=== PATIENT | male | born 1955 | race Caucasian/White ===

== ENCOUNTER → 2019-06-06 | Outpatient (CLI) | payer MEDICARE, BC, OTHER | LOC: COL.RAD 10:55 | DX: Z01.812 Encounter for preprocedural laboratory examination (principal); I71.3 Abdominal aortic aneurysm, ruptured; I50.20 Unspecified systolic (congestive) heart failure; N17.9 Acute kidney failure, unspecified; I70.201 Unspecified atherosclerosis of native arteries of extremities, right leg; I70.1 Atherosclerosis of renal artery; E27.8 Other specified disorders of adrenal gland | CPT/HCPCS: Q9967 ==

== ENCOUNTER 2019-07-01 13:27 | Inpatient (IN) | payer MEDICARE, BC ==
[2019-07-01] VITALS (12 sets, daily range): BP systolic 118–138; BP diastolic 46–76; PULSE 82–90; TEMP 97.7–98.3
[~2019-07-01] VITALS: Ht 182.9 cm; Wt 91.2 kg
[2019-07-01 14:26] LABS: BASO # 0.1 (0.0-0.2); BASO % 0.5 % (0.0-2.0); EOS # 0.2 (0.0-0.7); EOS % 1.6 % (0-4.0); GRAN # 7.5 (1.4-6.5); LYMPH # 1.2 (1.2-3.4); LYMPH % 12.3 % (20.0-51.0); MEAN CELL VOLUME 78 fl (80.0-100.0); MEAN CORPUSCULAR HGB CONC 25 g/dl (33.0-37.0); MEAN PLATELET VOLUME 11.6 fl (7.4-10.4); MONO % 10.3 % (1.7-9.3); PLATELET COUNT 247 K/mm3 (130-400); RED BLOOD COUNT 2.92 M/mm3 (4.20-5.60); REDCELL DISTRIBUTION WIDTH-CV 19.1 % (11.5-14.5)
[2019-07-01 14:30] LABS: HEMATOCRIT 22.9 % (42.0-52.0); MEAN CORPUSCULAR HEMOGLOBIN 20 pg (27.0-31.0)
[2019-07-01 14:32] LABS: ALBUMIN 3.9 gm/dL (3.5-5.0); BILIRUBIN,TOTAL 0.2 mg/dL (0.0-1.0); CALCIUM 9.3 mg/dL (8.4-10.2); CREATININE, serum 0.6 (0.66-1.25); HEMOGLOBIN 5.8 g/dl (13.5-18.0); POTASSIUM 4.3 mmol/L (3.4-5.0)
[2019-07-01] MEDS ORDERED: TYLENOL 325MG325 MG PO (14:51)
[2019-07-01] MEDS ORDERED: ASPIRIN 81M81 MG/TA2 PO (14:51)
[2019-07-01] MEDS ORDERED: LIPITOR 40MG TA40 MG PO (14:51)
[2019-07-01] MEDS ORDERED: COREG12.5 MG PO (14:51)
[2019-07-01] MEDS ORDERED: VITAMIN D 50,1.25 MG PO (14:52)
[2019-07-01] MEDS ORDERED: PLAVIX 75MG TAB75 MG PO (14:52)
[2019-07-01] MEDS ORDERED: NORCO 325 MG-51 TAB PO (14:52)
[2019-07-01] MEDS ORDERED: COZAAR 50MG50 MG/TAB PO (14:52)
[2019-07-01] MEDS ORDERED: ALDACTONE 25MG25 M1 PO (14:53)
[2019-07-01] MEDS ORDERED: NITROSTAT0.4 MG/TAB SL (14:53)
[2019-07-01 15:27] LABS: TROPONIN-I < 0.012 ng/mL (0.000-0.035)
[2019-07-01 16:12] LABS: COLLECTION METHOD CLEAN CATCH
[2019-07-01 16:32] LABS: SQUAMOUS EPITHELIAL 0-2 /hpf; URINE BACTERIA None Seen /hpf; URINE RBC 0-2 /hpf
[2019-07-01 17:06] LABS: PH 5 (5-8); URINE APPEARANCE Clear; URINE BILIRUBIN Negative (NEGATIVE); URINE BLOOD Negative (NEGATIVE); URINE COLOR Yellow; URINE GLUCOSE Negative (NEGATIVE); URINE KETONE Negative (NEGATIVE); URINE LEUKOCYTE ESTERASE Negative (NEGATIVE); URINE NITRATE Negative (NEGATIVE); URINE PROTEIN(semi-quant) Negative (NEGATIVE); URINE UROBILINOGEN Negative (NEGATIVE)
--- NOTE | 2019-07-01 17:37 | NUR ---
Patient up from ER. Patient oriented to room. Blood infusing per orders, initiated in ER. VSS. Denies further needs at this time.
--- NOTE | 2019-07-01 19:19 | NUR ---
Patient placed on 3L of oxygen via NC to maintain O2 saturations above 92. Blood infusing per orders, VSS. Patient initiated on bowel prep per orders. Reported off to hourly shift manager .
[2019-07-02 00:05] VITALS: BP 126/48; PULSE 88; TEMP 98.1
[2019-07-02 01:39] LABS: MEAN CELL VOLUME 79 fl (80.0-100.0); MEAN CORPUSCULAR HGB CONC 28 g/dl (33.0-37.0); MEAN PLATELET VOLUME 11.4 fl (7.4-10.4); PLATELET COUNT 219 K/mm3 (130-400); RED BLOOD COUNT 3.33 M/mm3 (4.20-5.60); REDCELL DISTRIBUTION WIDTH-CV 18.9 % (11.5-14.5)
[2019-07-02 01:42] LABS: HEMATOCRIT 26.3 % (42.0-52.0); HEMOGLOBIN 7.4 g/dl (13.5-18.0); MEAN CORPUSCULAR HEMOGLOBIN 22 pg (27.0-31.0)
--- NOTE | 2019-07-02 03:16 | NUR ---
patient doing well tonight. tolerated both units of PRBC. VSS. O2 sats stable above 92% on 3 L o2 via NC. denies pain or need for pain medication. patient finished bowel prep without issue. stools are still dark. tele shows normal sinus rhythm. has been NPO since midnight. no further needs at this time. will continue to monitor.
[2019-07-02 04:16] VITALS: BP 135/64; PULSE 88; TEMP 98.2
[2019-07-02 07:36] LABS: BASO # 0.1 (0.0-0.2); BASO % 0.7 % (0.0-2.0); EOS # 0.2 (0.0-0.7); EOS % 2.2 % (0-4.0); GRAN # 7.7 (1.4-6.5); GRAN % 75.1 % (42.2-75.2); LYMPH % 10.1 % (20.0-51.0); MEAN CELL VOLUME 81 fl (80.0-100.0); MEAN CORPUSCULAR HGB CONC 27 g/dl (33.0-37.0); MEAN PLATELET VOLUME 11.6 fl (7.4-10.4); MONO # 1.1 (0.1-0.6); PLATELET COUNT 216 K/mm3 (130-400); RED BLOOD COUNT 3.34 M/mm3 (4.20-5.60); REDCELL DISTRIBUTION WIDTH-CV 18.8 % (11.5-14.5)
[2019-07-02 07:39] LABS: HEMATOCRIT 27.2 % (42.0-52.0); HEMOGLOBIN 7.3 g/dl (13.5-18.0); MEAN CORPUSCULAR HEMOGLOBIN 22 pg (27.0-31.0)
[2019-07-02 07:55] LABS: CREATININE, serum 0.55 (0.66-1.25); POTASSIUM 4.5 mmol/L (3.4-5.0)
[2019-07-02 08:19] VITALS: BP 132/66; PULSE 90; TEMP 98.3
--- NOTE | 2019-07-02 11:00 | NUR ---
Patient is doing well after his procedure. Dr Garrison spoke with family and patient about discharge plan and the findings of them. Patient got upset with family and doctor. He stated he wants to leave this afternoon. No other changes at this time. Call light within reach.
--- NOTE | 2019-07-02 12:12 | NUR ---
Initial visit; Patient thanked Manager Banking for looking in on him and offering God's blessings.
--- NOTE | 2019-07-02 13:39 | NUR ---
Cma Or Lpn met with the patient to discuss discharge planning. Patient lives in a camper in the driveway of his cousins' home, [place]. Patient lives with his brother, Brendon ( ). Patient receives primary care from [facility] in [place] from Dr. Castro. Patient also obtains medications at the [facility] and has no issue affording them. Patient states he has had some difficulty getting around, but is independent with ADLS. Patient does not have any DME. Patient does not have Advance Directives and is not interested in designating a DPOA-HC. Patient plans to return home upon discharge. SW to continue to follow as needed.
--- NOTE | 2019-07-02 15:00 | NUR ---
Patient continues to have desaturation. Spoke with Dr Garrison about this. Patients oxygen saturation dropped to 70% once this afternoon. Encouraged him to do deep breathing excercises. No other changes at this time. Patient is being more agreeable about staying this afternoon and staying the night. No other changes a this time. Call light within reach.
[2019-07-02 15:49] VITALS: BP 117/53; PULSE 92; TEMP 98.7
[2019-07-02 15:56] LABS: HEMATOCRIT 28.2 % (42.0-52.0); HEMOGLOBIN 7.3 g/dl (13.5-18.0)
--- NOTE | 2019-07-02 18:00 | NUR ---
Patient has been doing well this afternoon. No other changes at this time. No complaints of pain. Eating and drinking without problems. Patient is hoping to discharge tomorrow. Explained will need to get patient set up with oxygen to go home. Patient verbalized understanding. No other changes at this time. Call light within reach.
[2019-07-02 18:25] LABS: HEMATOCRIT 27.1 % (42.0-52.0); HEMOGLOBIN 7.4 g/dl (13.5-18.0)
[2019-07-02 19:34] VITALS: BP 115/52; PULSE 93; TEMP 99.2
--- NOTE | 2019-07-02 20:27 | NUR ---
Lying in bed on right side. Denies pain or shortness of breath. Denies feeling short of breath when up doing activity. Explains that he had a CT done earlier and questions about the results. Explained the the provider will need to review the report and the provider will go over the report with him most likely in the morning. Denies N/V. Denies further concerns or needs at this time.
[2019-07-03] VITALS (10 sets, daily range): BP systolic 127–148; BP diastolic 59–81; PULSE 86–103; TEMP 97.7–99.5
--- NOTE | 2019-07-03 00:18 | NUR ---
Lying in bed with eyes open. Denies any pain, N/V. Patient explains that he has been up several times to the bathroom to urinate. Denies any complaints or needs at this time.
--- NOTE | 2019-07-03 02:05 | NUR ---
Patient up to restroom. Voids without difficulty. Returns to bed. Denies further needs or concerns at this time.
--- NOTE | 2019-07-03 03:18 | NUR ---
Patient up to bathroom to urinate. Noted on telemetry that heart rate went up to 120's. Patient denies pain or weakness. Returned to bed. Heart rate decreases to 90's. Patient denies further needs at this time.
--- NOTE | 2019-07-03 04:35 | NUR ---
Lying in bed with eyes open. Denies pain or nausea. Asks for a snack, crackers provided along with fresh water. Denies further needs.
--- NOTE | 2019-07-03 05:05 | NUR ---
Lying in bed with eyes open. Denies any pain. Explains that he can't wait for the provider to come in to talk with him about his tests so that he can get some answers about what is going on or what he is to expect. Concerned about any new medications that will be prescribed or medications that he is on that will be stopped. Explained that prior to him leaving they will provide him with a list of the medications he is to continue, those he will stop, and any new that he will start. Patient verbalizes understanding and denies further needs at this time.
[2019-07-03 06:41] LABS: BASO % 0.3 % (0.0-2.0); EOS # 0.2 (0.0-0.7); EOS % 1.8 % (0-4.0); GRAN # 8.1 (1.4-6.5); GRAN % 78.4 % (42.2-75.2); LYMPH % 9.3 % (20.0-51.0); MEAN CELL VOLUME 81 fl (80.0-100.0); MEAN CORPUSCULAR HGB CONC 27 g/dl (33.0-37.0); MEAN PLATELET VOLUME 12.9 fl (7.4-10.4); MONO % 9.7 % (1.7-9.3); PLATELET COUNT 227 K/mm3 (130-400); RED BLOOD COUNT 3.14 M/mm3 (4.20-5.60); REDCELL DISTRIBUTION WIDTH-CV 19.6 % (11.5-14.5)
[2019-07-03 06:52] LABS: CALCIUM 8.8 mg/dL (8.4-10.2); CREATININE, serum 0.5 (0.66-1.25); POTASSIUM 4.2 mmol/L (3.4-5.0)
[2019-07-03 06:58] LABS: HEMATOCRIT 25.4 % (42.0-52.0); HEMOGLOBIN 6.8 g/dl (13.5-18.0); MEAN CORPUSCULAR HEMOGLOBIN 22 pg (27.0-31.0)
--- NOTE | 2019-07-03 07:10 | NUR ---
Notified Olga COLLAZO of critical hemoglobin. Orders to transfuse 1 unit of PRBC entered.
--- NOTE | 2019-07-03 08:00 | NUR ---
Patient in bed resting. Alert and oriented x 3. Shift assessment complete. Educated patient on blood transfusion. Denies pain at this time. Fluids infusing per orders to right AC. Denies further needs at this time.
--- NOTE | 2019-07-03 10:15 | NUR ---
Initiated blood transfusion, VSS. This nurse remained with patient for initial 15 minutes of transfusion.
[2019-07-03 14:12] LABS: HEMATOCRIT 27.6 % (42.0-52.0); HEMOGLOBIN 7.7 g/dl (13.5-18.0)
[2019-07-03] MEDS ORDERED: AMOXICILLIN 8751 TAB PO (14:25)
[2019-07-03] MEDS ORDERED: COREG 3.123.125 MG/T PO (14:27)
[2019-07-03] MEDS ORDERED: PROTONIX 40MG T40 MG PO (14:28)
--- NOTE | 2019-07-03 14:44 | NUR ---
PERFORMED HOME O2 QUALIFICATIONS: SPO2 88% ON RA WHILE AT REST. PT QUALIFIES FOR HOME O2. NOTIFIED RN.
--- NOTE | 2019-07-03 17:16 | NUR ---
Runstitching Machine Operator was notified that patient will need oxygen upon discharge. HOLLY met with patient and presented DME choice form. Patient chose [facility] and signed the choice form. HOLLY placed form in patient chart. HOLLY faxed referral including order to [facility] and was informed pneumonia diagnosis is acute which means Medicare will not cover the cost and out of pocket massey is roughly $200 per month. HOLLY consulted MARY CARMEN Kumari who then included additional diagnosis of emphysema. HOLLY faxed updated order and discharge summary. HOLLY was then informed by Sarabjit Kapoor that due to time of day and question of diagnosis, patient would be required to sign ABN form which states patient would be required to pay if Medicare does not cover cost. This also requires form of payment to be taken although charges are not made until benefits are denied. SW relayed this information to patient and patient states he will not sign the form because he cannot afford out of pocket cost after HOLLY explained cost would be roughly $200 out of pocket. Patient states he has an appointment at the [facility], with the Red Team tomorrow and that they could assist him in obtaining oxygen. HOLLY informed MARY CARMEN Kumari that patient will not sign ABN form and [facility]. Patient to discharge this evening without oxygen. SW to follow up with [facility], Red Team tomorrow to ensure oxygen need is met.
--- NOTE | 2019-07-03 17:35 | NUR ---
Outreach Analyst spoke with Hospitalist who advised patient is agreeable to stay another night so oxygen can be set up prior to discharge. SW will continue to follow.
--- NOTE | 2019-07-03 18:36 | NUR ---
Patient has done well throughout the day. Denies needs at this time. Will report off to retail shift leader.
[2019-07-04 00:52] VITALS: BP 137/67; PULSE 92; TEMP 98.8
[2019-07-04 04:00] VITALS: BP 129/58; PULSE 95; TEMP 98.1
--- NOTE | 2019-07-04 04:53 | NUR ---
Patient has rested well throughout the night. Denies any pain. Independent with toileting. Denies any further needs. Will continue to monitor.
[2019-07-04 06:09] LABS: BASO # 0.1 (0.0-0.2); BASO % 0.5 % (0.0-2.0); EOS # 0.3 (0.0-0.7); EOS % 2.5 % (0-4.0); GRAN # 7.7 (1.4-6.5); GRAN % 76.4 % (42.2-75.2); LYMPH # 0.9 (1.2-3.4); LYMPH % 8.8 % (20.0-51.0); MEAN CELL VOLUME 80 fl (80.0-100.0); MEAN CORPUSCULAR HGB CONC 28 g/dl (33.0-37.0); MEAN PLATELET VOLUME 12.3 fl (7.4-10.4); MONO # 1.2 (0.1-0.6); MONO % 11.4 % (1.7-9.3); PLATELET COUNT 221 K/mm3 (130-400); RED BLOOD COUNT 3.59 M/mm3 (4.20-5.60); REDCELL DISTRIBUTION WIDTH-CV 19.4 % (11.5-14.5)
[2019-07-04 06:10] LABS: HEMATOCRIT 28.8 % (42.0-52.0); MEAN CORPUSCULAR HEMOGLOBIN 22 pg (27.0-31.0)
[2019-07-04 07:13] VITALS: BP 138/70; PULSE 87; TEMP 98.2
--- NOTE | 2019-07-04 10:54 | NUR ---
Geophysics Teacher contacted Sarabjit Kapoor who advised patient would still be required to sign ABN as two [employer] employees who review benefits are out of the office. SW faxed referral to [facility] and patient was in agreeance. [facility] delivered oxygen to patient and did not require ABN to be signed. [facility]. SW contacted [employer] to advise patient chose another company. No additional concerns at this time. Patient to discharge today.
--- NOTE | 2019-07-04 11:30 | NUR ---
Patient is discharging home. His oxygen tank has been delivered. He knows to call when he is almost home so that they can deliver his concentrator. Explained when his follow up appointments are. He verbalized understanding. All belongings packed up and given to patient. His wallet has been returned to him. He has 3 scripts he needs to get filled and he is aware of them. He is being walked out via wheel chair by JASON Chandler.
== END 2019-07-04 11:30 | disposition home or self-care (01) | DRG 374 ==
LOC: COL.ER 13:27 → SURG 15:16
PROVIDERS: Emergency Medicine; Hospitalist; Internal Medicine Gastroenterology; Physician Assistant; ADMIT Student in an Organized Health Care Education/Training Program
PROC: 0DBL8ZX Excision of Transverse Colon, Via Natural or Artificial Opening Endoscopic, Diagnostic (ICD-10-PCS; 2019-07-02)
PROC: 0DBN8ZX Excision of Sigmoid Colon, Via Natural or Artificial Opening Endoscopic, Diagnostic (ICD-10-PCS; 2019-07-02)
PROC: 0DBP8ZX Excision of Rectum, Via Natural or Artificial Opening Endoscopic, Diagnostic (ICD-10-PCS; 2019-07-02)
PROC: 0DBM8ZX Excision of Descending Colon, Via Natural or Artificial Opening Endoscopic, Diagnostic (ICD-10-PCS; 2019-07-02)
PROC: 0DB68ZX Excision of Stomach, Via Natural or Artificial Opening Endoscopic, Diagnostic (ICD-10-PCS; principal; 2019-07-02 09:00)
PROC: 0DBK8ZX Excision of Ascending Colon, Via Natural or Artificial Opening Endoscopic, Diagnostic (ICD-10-PCS; 2019-07-02 09:00)
DX: C16.9 Malignant neoplasm of stomach, unspecified (principal); J69.0 Pneumonitis due to inhalation of food and vomit; J96.01 Acute respiratory failure with hypoxia; I25.10 Atherosclerotic heart disease of native coronary artery without angina pectoris; I73.9 Peripheral vascular disease, unspecified; I71.4 Abdominal aortic aneurysm, without rupture; I10 Essential (primary) hypertension; F17.210 Nicotine dependence, cigarettes, uncomplicated; K63.5 Polyp of colon; D50.9 Iron deficiency anemia, unspecified; Z95.9 Presence of cardiac and vascular implant and graft, unspecified; Z79.82 Long term (current) use of aspirin
CPT/HCPCS: 99222-AI; 99231-AI; 99232-AI; 99239; C9113; J2405; J2704; J2765; J7030; P9016; Q9967

== ENCOUNTER 2019-08-08 23:54 | Emergency (ER) | payer MEDICARE, BC ==
[~2019-08-08] VITALS: Ht 182.9 cm; Wt 84.1 kg
[~2019-08-08 23:54] MED LIST: ALDACTONE 25MG25 M1 PO; AMOXICILLIN 8751 TAB PO; ASPIRIN 81M81 MG/TA2 PO; COREG 3.123.125 MG/T PO; COREG12.5 MG PO; COZAAR 50MG50 MG/TAB PO; LIPITOR 40MG TA40 MG PO; NITROSTAT0.4 MG/TAB SL; NORCO 325 MG-51 TAB PO; PLAVIX 75MG TAB75 MG PO; PROTONIX 40MG T40 MG PO; TYLENOL 325MG325 MG PO; VITAMIN D 50,1.25 MG PO
[2019-08-09] VITALS (7 sets, daily range): BP systolic 113–143; BP diastolic 58–73; PULSE 103–108; TEMP 98–98.3
[2019-08-09] MEDS ORDERED: FERROUSAL325 MG PO (00:22)
[2019-08-09] MEDS ORDERED: ELIQUIS 5MG PO (00:23)
[2019-08-09 00:46] LABS: MEAN CELL VOLUME 84 fl (80.0-100.0); MEAN CORPUSCULAR HGB CONC 27 g/dl (33.0-37.0); MEAN PLATELET VOLUME 12.1 fl (7.4-10.4); PLATELET COUNT 294 K/mm3 (130-400); RED BLOOD COUNT 2.77 M/mm3 (4.20-5.60); REDCELL DISTRIBUTION WIDTH-CV 26.8 % (11.5-14.5)
[2019-08-09 00:48] LABS: HEMATOCRIT 23.3 % (42.0-52.0); HEMOGLOBIN 6.3 g/dl (13.5-18.0); INR 2.3 (0.8-3.0); MEAN CORPUSCULAR HEMOGLOBIN 23 pg (27.0-31.0)
[2019-08-09 00:51] LABS: ALBUMIN 3.6 gm/dL (3.5-5.0); BILIRUBIN,TOTAL 0.3 mg/dL (0.0-1.0); CALCIUM 9.1 mg/dL (8.4-10.2); CREATININE, serum 0.86 (0.66-1.25); POTASSIUM 4.4 mmol/L (3.4-5.0); TOTAL PROTEIN 6.6 gm/dL (6.4-8.2)
[2019-08-09 01:45] LABS: ANISOCYTOSIS 2+; BAND 5 % (0-10); BASOPHIL 2 % (0-2); EOSINOPHIL 2 % (0-4); HYPOCHROMIA 3+; LYMPHOCYTE 13 % (20.0-51.0); METAMYELOCYTE 2 % (0-0); NEUTROPHILS 71 % (42.0-75.2); PLATELET ESTIMATE NORMAL (NORMAL)
[2019-08-09 01:46] LABS: OVALOCYTES 1+
[2019-08-09 01:50] LABS: POLYCHROMASIA 1+
== END 2019-08-09 04:00 | disposition short-term general hospital (02) ==
LOC: COL.ER 23:54
PROVIDERS: Emergency Medicine
DX: K92.2 Gastrointestinal hemorrhage, unspecified (principal); D64.9 Anemia, unspecified; E78.5 Hyperlipidemia, unspecified; I25.10 Atherosclerotic heart disease of native coronary artery without angina pectoris; I10 Essential (primary) hypertension; I82.409 Acute embolism and thrombosis of unspecified deep veins of unspecified lower extremity; Z95.5 Presence of coronary angioplasty implant and graft; Z79.01 Long term (current) use of anticoagulants
CPT/HCPCS: C9113; J3010; J7030; P9016

== ENCOUNTER 2019-09-15 18:52 | Emergency (ER) | payer MEDICARE, BC ==
[~2019-09-15] VITALS: Ht 182.9 cm; Wt 83.6 kg
[~2019-09-15 18:52] MED LIST changes: +ELIQUIS 5MG PO; +FERROUSAL325 MG PO
[2019-09-15 18:55] VITALS: TEMP 97.2
[2019-09-15 19:22] LABS: BASO # 0.1 (0.0-0.2); BASO % 0.4 % (0.0-2.0); EOS % 0.2 % (0-4.0); GRAN # 14.3 (1.4-6.5); LYMPH % 5.6 % (20.0-51.0); MEAN CELL VOLUME 88 fl (80.0-100.0); MEAN CORPUSCULAR HGB CONC 28 g/dl (33.0-37.0); MEAN PLATELET VOLUME 12.6 fl (7.4-10.4); MONO # 1.5 (0.1-0.6); MONO % 8.7 % (1.7-9.3); PLATELET COUNT 393 K/mm3 (130-400); RED BLOOD COUNT 3.04 M/mm3 (4.20-5.60); REDCELL DISTRIBUTION WIDTH-CV 18.2 % (11.5-14.5)
[2019-09-15 19:27] LABS: HEMATOCRIT 26.8 % (42.0-52.0); HEMOGLOBIN 7.5 g/dl (13.5-18.0); MEAN CORPUSCULAR HEMOGLOBIN 25 pg (27.0-31.0)
[2019-09-15 19:43] LABS: ARTERIAL BLD GAS O2 SATURATION 93.1 % (92-100); ARTERIAL BLD GAS TCO2 CT 30.9; ARTERIAL BLOOD GAS BASE EXCESS 4.6 (-2-2); ARTERIAL BLOOD GAS HCO3 29.5 meq/L (22-26); ARTERIAL BLOOD GAS PCO2 46.1 mmHg (35-45); ARTERIAL BLOOD GAS pH 7.42 (7.35-7.45)
[2019-09-15 19:45] LABS: ALBUMIN 3.6 gm/dL (3.5-5.0); BILIRUBIN,TOTAL 0.5 mg/dL (0.0-1.0); CALCIUM 9.2 mg/dL (8.4-10.2); CREATININE, serum 1.04 (0.66-1.25); POTASSIUM 5.6 mmol/L (3.4-5.0); TOTAL PROTEIN 6.6 gm/dL (6.4-8.2)
[2019-09-15 21:52] LABS: COLLECTION METHOD CLEAN CATCH
[2019-09-15 21:59] LABS: MUCOUS Present /lpf; PH 5 (5-8); SQUAMOUS EPITHELIAL 0-2 /hpf; URINE APPEARANCE Hazy; URINE BACTERIA None Seen /hpf; URINE BILIRUBIN Negative (NEGATIVE); URINE BLOOD Negative (NEGATIVE); URINE COLOR Yellow; URINE GLUCOSE Negative (NEGATIVE); URINE KETONE Negative (NEGATIVE); URINE LEUKOCYTE ESTERASE Negative (NEGATIVE); URINE NITRATE Positive (NEGATIVE); URINE PROTEIN(semi-quant) Negative (NEGATIVE); URINE RBC 0-2 /hpf; URINE UROBILINOGEN Negative (NEGATIVE)
[2019-09-15 22:45] VITALS: BP 116/60; PULSE 95
== END 2019-09-15 22:45 | disposition other institution (70) ==
LOC: COL.ER 18:52
PROVIDERS: Family Medicine
DX: K92.2 Gastrointestinal hemorrhage, unspecified (principal); I73.9 Peripheral vascular disease, unspecified; D64.9 Anemia, unspecified; I25.10 Atherosclerotic heart disease of native coronary artery without angina pectoris; K21.9 Gastro-esophageal reflux disease without esophagitis; F17.210 Nicotine dependence, cigarettes, uncomplicated; Z79.01 Long term (current) use of anticoagulants
CPT/HCPCS: J0696; J3010; J3370; J7030; J7040; J7120; Q9967

== ENCOUNTER 2019-09-24 17:11 | Emergency (ER) | payer MEDICARE, BC ==
[2019-09-24] VITALS (8 sets, daily range): BP systolic 101–124; BP diastolic 50–106; PULSE 109–114; TEMP 97.1–99.3
[~2019-09-24] VITALS: Wt 79.1 kg
[2019-09-24 17:42] LABS: MEAN CELL VOLUME 90 fl (80.0-100.0); MEAN CORPUSCULAR HGB CONC 30 g/dl (33.0-37.0); MEAN PLATELET VOLUME 13.5 fl (7.4-10.4); PLATELET COUNT 278 K/mm3 (130-400); RED BLOOD COUNT 2.36 M/mm3 (4.20-5.60)
[2019-09-24 17:49] LABS: ARTERIAL BLD GAS O2 SATURATION 99.6 % (92-100); ARTERIAL BLD GAS TCO2 CT 15.3; ARTERIAL BLOOD GAS BASE EXCESS -8.3 (-2-2); ARTERIAL BLOOD GAS HCO3 14.7 meq/L (22-26); ARTERIAL BLOOD GAS pH 7.44 (7.35-7.45)
[2019-09-24 17:50] LABS: ARTERIAL BLOOD GAS PCO2 21.9 mmHg (35-45); ARTERIAL BLOOD GAS PO2 163.4 mmHg (80-100)
[2019-09-24 17:51] LABS: HEMATOCRIT 21.3 % (42.0-52.0); HEMOGLOBIN 6.3 g/dl (13.5-18.0); MEAN CORPUSCULAR HEMOGLOBIN 27 pg (27.0-31.0)
[2019-09-24 17:54] LABS: ALANINE AMINOTRANSFERASE < 6 U/L (21-72); ALKALINE PHOSPHATASE 77 U/L (50-136); ANION GAP 27 mmol/L (7-16); AST,SGOT 20 U/L (15-37); BILIRUBIN,TOTAL 0.4 mg/dL (0.0-1.0); BLOOD UREA NITROGEN 107 mg/dL (9-20); C-REACTIVE PROTEIN 2.1 mg/dL (0.0-0.9); CALCIUM 8.7 mg/dL (8.4-10.2); CARBON DIOXIDE 15 mmol/L (22-30); CREATININE, serum 1.43 (0.66-1.25); GLUCOSE 288 mg/dL (74-106); LIPASE 62 U/L (23-300); POTASSIUM 4.8 mmol/L (3.4-5.0); SODIUM 131 mmol/L (137-145); TOTAL PROTEIN 5.5 gm/dL (6.4-8.2)
[2019-09-24 17:57] LABS: CHLORIDE 89 mmol/L (98-107)
[2019-09-24 18:15] LABS: BAND 3 % (0-10); LYMPHOCYTE 3 % (20.0-51.0); METAMYELOCYTE 1 % (0-0); MYELOCYTE 1 % (0-0); NEUTROPHILS 86 % (42.0-75.2); PLATELET ESTIMATE NORMAL (NORMAL)
[2019-09-24 18:16] LABS: HYPOCHROMIA 2+
[2019-09-24 21:34] LABS: COLLECTION METHOD CLEAN CATCH
[2019-09-24 21:40] LABS: MUCOUS Present /lpf; PH 5 (5-8); SQUAMOUS EPITHELIAL 0-2 /hpf; URINE APPEARANCE Hazy; URINE BACTERIA None Seen /hpf; URINE BILIRUBIN Negative (NEGATIVE); URINE BLOOD Negative (NEGATIVE); URINE COLOR Yellow; URINE GLUCOSE Negative (NEGATIVE); URINE KETONE Negative (NEGATIVE); URINE LEUKOCYTE ESTERASE Negative (NEGATIVE); URINE NITRATE Negative (NEGATIVE); URINE PROTEIN(semi-quant) Negative (NEGATIVE); URINE RBC 0-2 /hpf; URINE UROBILINOGEN Negative (NEGATIVE)
== END 2019-09-24 22:22 | disposition short-term general hospital (02) ==
LOC: COL.ER 17:11
PROVIDERS: Family Medicine
DX: C25.9 Malignant neoplasm of pancreas, unspecified (principal); C78.89 Secondary malignant neoplasm of other digestive organs; K86.81 Exocrine pancreatic insufficiency; K62.5 Hemorrhage of anus and rectum; I95.9 Hypotension, unspecified; J44.9 Chronic obstructive pulmonary disease, unspecified
CPT/HCPCS: C9132; J2405; J2543; J7030; P9016; Q9967